=== PATIENT | female | born 2000 | race African-American/Black ===

== ENCOUNTER 2024-09-21 14:31 | Emergency (ER) | payer OTHER ==
[~2024-09-21] VITALS: Ht 170.2 cm; Wt 52.2 kg
[2024-09-21 14:39] VITALS: TEMP 97.9
[2024-09-21] MEDS ORDERED: oxyCODONE/APAP (5/325 MG) 1 UDTAB TABLET ONE (15:13)
[2024-09-21] MEDS: oxyCODONE/APAP (5/325 MG) 1 UDTAB TABLET PO ONE (15:15)
[2024-09-21 15:19] VITALS: BP 114/70; O2SAT 98
== END 2024-09-21 15:20 | disposition home or self-care (01) ==
LOC: ER 14:39
DX: G89.29 Other chronic pain (principal); R07.9 Chest pain, unspecified; Z88.0 Allergy status to penicillin; Z90.49 Acquired absence of other specified parts of digestive tract; Z87.19 Personal history of other diseases of the digestive system; Z87.448 Personal history of other diseases of urinary system